=== PATIENT | female | born 1960 | race Two or more races ===

== ENCOUNTER 2017-04-26 08:10 | Emergency (ER) | payer SELFPAY ==
[~2017-04-26] VITALS: Ht 165.1 cm; Wt 80.0 kg
[2017-04-26 09:10] LABS: BASOPHILS % 0.5 % (0.0-2.0); EOSINOPHILS % 2.5 % (0.0-5.0); HEMOGLOBIN. 13.7 g/dL (12.0-16.0); LYMPHOCYTES % 27.2 % (20.0-50.0); MEAN CORPUSCULAR HEMOGLOBIN 28.2 pg (28.0-32.0); MEAN CORPUSCULAR VOLUME 80.4 fL (81.0-99.0); MEAN PLATELET VOLUME 7.8 fl (7.4-10.4); MONOCYTES % 6.7 % (2.0-8.0); NEUTROPHILS % 63.1 % (40.0-76.0); PLATELET 302 x1000/uL (130-400); RED BLOOD CELL COUNT 4.84 mill/uL (4.2-5.4); RED CELL DISTRIBUTION WIDTH 13.8 % (11.6-14.6)
[2017-04-26 09:20] LABS: D-DIMER 0.43 mg/L FEU (<0.50); PROTHROMBIN TIME 10.7 sec (9.4-11.6)
[2017-04-26 09:26] LABS: CARBON DIOXIDE 26 mEq/L (21-32); CHLORIDE 105 mEq/L (98-107); TROPONIN I < 0.02 ng/mL (0.00-0.04)
[2017-04-26 12:00] VITALS: BP 139/71
[2017-04-26] MEDS ORDERED: MAGNESIUM/ALUMINUM HYDROXIDE/SIMETHICONE 30ML UDC PO PRN ×2 (12:00→12:30)
[2017-04-26] MEDS ORDERED: DIPHENHYDRAMINE 50MG/ML VIAL IV PRN ×2 (12:00→12:30)
[2017-04-26] MEDS ORDERED: ENOXAPARIN 40MG/0.4ML SYR SUBCUT SCH ×2 (12:00→12:30)
[2017-04-26] MEDS ORDERED: KETOROLAC 15MG/ML VIAL IV PRN ×2 (12:00→12:30)
[2017-04-26] MEDS ORDERED: IPRATROPIUM/ALBUTEROL 0.5-3(2.5)MG/3ML NEB INH PRN ×2 (12:00→12:30)
[2017-04-26] MEDS ORDERED: DOCUSATE SODIUM 100MG CAPSULE PO PRN ×2 (12:00→12:30)
[2017-04-26] MEDS ORDERED: LORAZEPAM 2MG/ML CPJ IV PRN ×2 (12:00→12:30)
[2017-04-26] MEDS ORDERED: CLONIDINE 0.1MG TABLET PO PRN ×2 (12:00→12:30)
[2017-04-26] MEDS ORDERED: ONDANSETRON HCL 4MG/2ML VIAL IV PRN ×2 (12:00→12:30)
[2017-04-26] MEDS ORDERED: NA PHOS,M-B/NA PHOS,DI-BA ENEMA 118ML PR PRN ×2 (12:00→12:30)
[2017-04-26] MEDS ORDERED: NITROGLYCERIN 0.4MG TABLET SL SL PRN ×2 (12:00→12:30)
[2017-04-26] MEDS ORDERED: ZOLPIDEM TARTRATE 5MG TABLET PO PRN ×2 (12:00→12:30)
[2017-04-26] MEDS ORDERED: ACETAMINOPHEN 325MG TABLET PO PRN ×2 (12:00→12:30)
[2017-04-26] MEDS ORDERED: GUAIFENESIN 200MG/10ML SUGAR FREE UDC PO PRN ×2 (12:00→12:30)
[2017-04-26] MEDS ORDERED: DEXTROSE 50% WATER 50ML SYRINGE IV PRN ×2 (12:15→12:30)
[2017-04-26] MEDS ORDERED: BLOOD SUGAR DIAGNOSTIC STRIP TEST SCH ×2 (13:00→13:15)
[2017-04-26] MEDS ORDERED: SUCRALFATE 1 G/10 ML UDC PO SCH ×2 (13:00→13:15)
[2017-04-26] MEDS ORDERED: INSULIN LISPRO 100 UNITS/ML SUBCUT SCH ×2 (13:20→13:30)
[2017-04-26] MEDS ORDERED: FAMOTIDINE 20MG/2ML VIAL IV SCH ×2 (21:00→21:15)
[2017-04-26] MEDS ORDERED: METOPROLOL TARTRATE 25MG TABLET PO SCH ×2 (21:00→21:15)
[2017-04-27] MEDS ORDERED: ASPIRIN 325MG EC TABLET PO SCH ×2 (09:00→09:15)
== END 2017-04-26 12:15 | disposition left against medical advice (07) ==
LOC: ER 08:26 → EDBD 08:26 → EDBEDREQ 10:19 → ER 12:15 → CANRESERV 12:39 → ENRESERV 12:39 → CANBEDREQ 18:11
DX: R07.89 Other chest pain (principal); E78.00 Pure hypercholesterolemia, unspecified; I10 Essential (primary) hypertension; I25.2 Old myocardial infarction; Z95.5 Presence of coronary angioplasty implant and graft
CPT/HCPCS: 36415; 71010; 80053; 80061; 83036; 83880; 84484; 85025; 85379; 85610; 93005; 99285; Z7610